=== PATIENT | male | born 1945 | race Caucasian/White ===

== ENCOUNTER 2025-02-17 20:26 | Outpatient (REF) | payer OTHER, SELFPAY ==
[2025-02-17 21:04] LABS: Appearance Urine Cloudy (Clear); Bilirubin Urine Negative (Negative); Blood Urine 3+ (Negative); Color Urine Yellow (Yellow); Glucose Urine 2+ (Negative); Ketones Urine Negative (Negative); Leukocyte Esterase Urine Trace (Negative); Nitrite Urine Negative (Negative); Protein Urine 1+ (Negative); Specific Gravity Urine 1.015 (1.000-1.030); Urobilinogen Urine 0.2 (0.2-1.0); pH Urine 5.5 (5.0-8.5)
[2025-02-17 21:30] LABS: Fine Granular Casts Urine Few
== END 2025-02-17 20:27 | disposition home or self-care (01) ==
LOC: NPINS 20:26
PROVIDERS: PCP Family Medicine; Visit Provider Nurse Practitioner Gerontology
DX: R41.0 Disorientation, unspecified (principal)
CPT/HCPCS: 81001; 87086

== ENCOUNTER 2025-03-04 08:07 | Outpatient (CLI) | payer OTHER, MEDICARE, SELFPAY | END 2025-03-04 08:08 | disposition home or self-care (01) | LOC: AMB 03-05 09:09 | PROVIDERS: PCP Family Medicine; Visit Provider Family Medicine | DX: R47.81 Slurred speech (principal); R29.810 Facial weakness | CPT/HCPCS: A0425; A0427 ==

== ENCOUNTER 2025-03-04 08:33 | Inpatient (IN) | payer OTHER, MEDICARE, SELFPAY ==
[2025-03-04] VITALS (30 sets, daily range): BP systolic 88–143; BP diastolic 59–89; PULSE 65–85; RESP 11–27; TEMP 36.2–36.8; O2SAT 91–100; BMI 25.0; BMI 28.6
--- NOTE | 2025-03-04 08:35 | CRLHL7_ITS ---
For Patients: As a result of the Century Cures Act, medical imaging exams and procedure reports are released immediately into your electronic medical record. You may view this report before your referring provider. If you have questions, please contact your health care provider. COMPARISON: None. IMPRESSION: CTA head: No large vessel occlusion or significant aneurysm. Mild focal stenosis of the left P2 segment. Calcification of the cavernous carotids. CTA neck: No sign of dissection or critical stenosis. Calcification of the carotid bulbs. Other: Paraseptal emphysema. There is a 3 millimeter nodule in the right upper lobe. In a low risk patient, no further follow-up is indicated. In a high-risk patient, nonemergent CT chest can be considered to evaluate for other nodules. Please note that all CT scans at this facility use dose modulation, iterative reconstruction, and/or weight-based dosing when appropriate to reduce radiation dose to as low as reasonably achievable. Dictated by Pratima Vasquez MD @ 03/04/2025 8:57:45 AM (Electronically Signed)
--- NOTE | 2025-03-04 08:35 | CRLHL7_ITS ---
For Patients: As a result of the Cures Act, medical imaging exams and procedure reports are released immediately into your electronic medical record. You may view this report before your referring provider. If you have questions, please contact your health care provider. INDICATION: . TECHNIQUE: CT head without contrast. COMPARISON: None. FINDINGS: MASS EFFECT AND VENTRICLES: No significant midline shift. The lateral ventricles are symmetric. Basal cisterns patent. No sulcal effacement. The ventricles, cisterns, and other CSF containing spaces are symmetrically prominent secondary to diffuse parenchymal volume loss but are otherwise normal as to shape and position. BRAIN: Diffuse cerebral volume loss. Periventricular and subcortical hypodensities likely secondary to age-related microvascular ischemic changes. No acute infarct or hemorrhage. VASCULAR: No acute abnormalities of the cavernous carotids and vertebral vessels on noncontrast exam. Calcification of the cavernous carotids. EXTRA-AXIAL: Extra-axial spaces are normal. EXTRA-CRANIAL: Minimal soft tissue stranding along the left forehead. No acute calvarial or facial fractures. Moderate left maxillary sinus mucosal thickening. Mastoids are clear. Bilateral lens replacements. IMPRESSION: No acute intracranial abnormality. These results were communicated to Adalgisa by Christina on 03/04/2025 at 8:50 a.m.. Please note that all CT scans at this facility use dose modulation, iterative reconstruction, and/or weight-based dosing when appropriate to reduce radiation dose to as low as reasonably achievable. Dictated by Pratima Vasquez MD @ 03/04/2025 8:52:54 AM (Electronically Signed)
--- NOTE | 2025-03-04 08:36 | CRLHL7_ITS ---
For Patients: As a result of the Century Cures Act, medical imaging exams and procedure reports are released immediately into your electronic medical record. You may view this report before your referring provider. If you have questions, please contact your health care provider. DATE: 03/04/2025 CLINICAL HISTORY: Patient with focal neurological deficits. TECHNIQUE: Standard helical CT image acquisition of the neck up to the skull base after bolus intravenous contrast enhancement. 2D and 3D MIP images for post-processing were performed and interpreted on an independent workstation and 3D images were permanently archived. COMPARISON: CT same day. FINDINGS: The origins of the great vessels from the aortic arch are patent. The origin of the right vertebral artery is patent. The origin of the left vertebral artery is patent. The common carotid arteries are patent. There is no stenosis at the origin of the right internal carotid artery. There is no stenosis at the origin of the left internal carotid artery. The rest of the cervical segments of the internal carotid arteries are patent up to the skull base. The left vertebral artery is dominant. The cervical segments of the vertebral arteries are patent up to the skull base. The visualized lung apices are unremarkable. The thyroid gland is unremarkable. The soft tissues of the neck are unremarkable. There are degenerative changes in the cervical spine. IMPRESSION: Patent cervical vasculature. Please note that all CT scans at this facility use dose modulation, iterative reconstruction, and/or weight-based dosing when appropriate to reduce radiation dose to as low as reasonably achievable. Dictated by Mami Resendiz MD @ 03/04/2025 11:34:32 AM (Electronically Signed)
--- NOTE | 2025-03-04 08:37 | ED.GENADULT ---
HPI - General Adult General Time Seen by Provider: 08:37 Date Seen: 03/04/25 Chief complaint: Neuro Symptoms/Altered Deficit Stated complaint: Stroke Source: patient and EMS Mode of arrival: EMS Limitations: language barrier History of Present Illness HPI narrative: Edvin 79-year-old male from [facility] assisted living presents emergency department via EMS with speech difficulty, left-sided weakness. per staff when they woke him up this morning they noted significant change with patient's speech, last known normal was last evening before going to bed. He also noted to have some left upper extremity weakness, left-sided gaze per EMS. Patient denies any headache or dizziness. No visual changes. No trouble swallowing. No history of any CVA. Patient denies any focal weakness, patient does feel that his speech has been more difficult. Patient said he went to bed around 9:00 p.m. last night. Patient states he was relatively feeling well prior to going to bed last night. Related Data Home Medications ?Medication ?Instructions ?Recorded ?Confirmed acetaminophen 500 mg capsule 1,000 mg PO TID PRN 03/04/25 03/04/25 allopurinol 300 mg tablet 300 mg PO DAILY 03/04/25 03/04/25 amlodipine 10 mg tablet 10 mg PO DAILY 03/04/25 03/04/25 aspirin 81 mg capsule 81 mg PO DAILY 03/04/25 03/04/25 atorvastatin 40 mg tablet 40 mg PO QHS 03/04/25 03/04/25 carvedilol 6.25 mg tablet 6.25 mg PO BID 03/04/25 03/04/25 diclofenac sodium 1 % topical gel 2 g topical QID 03/04/25 03/04/25 duloxetine 30 mg capsule,delayed 30 mg PO BID 03/04/25 03/04/25 release (Cymbalta) empagliflozin 25 mg tablet 25 mg PO DAILY 03/04/25 03/04/25 gabapentin 100 mg capsule 200 mg PO Q8H PRN 03/04/25 03/04/25 gabapentin 100 mg capsule 200 mg PO TID 03/04/25 03/04/25 (Neurontin) insulin aspart U-100 100 unit/mL 15 unit subcut TID 03/04/25 03/04/25 (3 mL) subcutaneous pen insulin glargine 100 unit/mL (3 40 unit subcut DAILY 03/04/25 03/04/25 mL) subcutaneous pen lisinopril 40 mg tablet 40 mg PO DAILY 03/04/25 03/04/25 nitroglycerin 0.4 mg sublingual 0.4 mg sublingual Q5M 03/04/25 03/04/25 tablet omeprazole 20 mg capsule,delayed 20 mg PO DAILY 03/04/25 03/04/25 release pioglitazone 15 mg tablet (Actos) 15 mg PO DAILY 03/04/25 03/04/25 Allergies Allergy/AdvReac Type Severity Reaction Status Date / Time colchicine Allergy Unknown Verified 03/04/25 08:51 metformin Allergy Unknown Verified 03/04/25 08:51 PFSH PFS Social History Smoking Status: Former smoker How often do you have a drink containing alcohol: never AUDIT-C Alcohol total score: 0 Non-prescribed substance use: denies use Exam Narrative: Exam Narrative: general: no obvious distress, laying comfortably HEENT: Pupils equal round reactive to light extraocular movements intact, visual acuity normal Lungs: Clear to auscultation Heart: Normal sinus rhythm S1-S2 Abdomen: Soft nontender Muscle skeletal: +5 strength left lower extremity, [id number] right amputation Neuro: NIH stroke scale: Level of consciousness: 0 Ask month and age: 0 Blink eyes and squeeze hands: 0 Visual richardson: 0 facial palsy: +2 left arm motor drift: 0 right arm motor drift: +1 left leg motor drift: 0 right leg motor drift: 0 Limb ataxia: 0 sensation: 0 Aphasia: 0 Dysarthria: +1 Extinction/inattention: 0 Score: 4 Const: Vital Signs, click to edit/add: Vital Signs - 24 hr 03/04/25 08:40 03/04/25 08:44 03/04/25 08:45 Temperature 97.9 F Pulse Rate 73 Pulse Rate [Pulse Oximeter] 75 Respiratory Rate 16 16 Blood Pressure 143/81 H Blood Pressure [Ri ght Upper Arm] 136/72 Pulse Oximetry 96 96 95 Oxygen Delivery Me thod Room Air 03/04/25 08:47 03/04/25 09:01 03/04/25 09:17 Temperature Pulse Rate 74 72 74 Pulse Rate [Pulse Oximeter] Respiratory Rate 19 14 13 Blood Pressure 136/72 126/69 119/85 Blood Pressure [Ri ght Upper Arm] Pulse Oximetry 98 96 99 Oxygen Delivery Me thod 03/04/25 09:32 03/04/25 09:47 03/04/25 10:02 Temperature Pulse Rate 71 70 69 Pulse Rate [Pulse Oximeter] Respiratory Rate 16 14 11 L Blood Pressure 110/71 111/70 103/60 Blood Pressure [Ri ght Upper Arm] Pulse Oximetry 100 98 96 Oxygen Delivery Me thod 03/04/25 10:31 03/04/25 10:46 03/04/25 12:02 Temperature Pulse Rate 68 70 66 Pulse Rate [Pulse Oximeter] Respiratory Rate 13 15 13 Blood Pressure 103/59 L 104/62 120/65 Blood Pressure [Ri ght Upper Arm] Pulse Oximetry 98 96 96 Oxygen Delivery Me thod 03/04/25 12:31 03/04/25 13:00 03/04/25 13:01 Temperature Pulse Rate 65 67 71 Pulse Rate [Pulse Oximeter] Respiratory Rate 12 16 15 Blood Pressure 126/74 118/74 132/70 Blood Pressure [Ri ght Upper Arm] Pulse Oximetry 91 95 95 Oxygen Delivery Me thod 03/04/25 13:31 03/04/25 14:02 03/04/25 14:17 Temperature Pulse Rate 67 67 Pulse Rate [Pulse Oximeter] Respiratory Rate 12 19 21 Blood Pressure 130/71 133/71 Blood Pressure [Ri ght Upper Arm] Pulse Oximetry 94 92 Oxygen Delivery Me thod Room Air 03/04/25 14:30 03/04/25 14:31 03/04/25 14:32 Temperature Pulse Rate 75 74 74 Pulse Rate [Pulse Oximeter] Respiratory Rate 14 18 13 Blood Pressure 88/61 L Blood Pressure [Ri ght Upper Arm] Pulse Oximetry 97 97 97 Oxygen Delivery Mo thod 03/04/25 14:45 03/04/25 14:48 03/04/25 15:00 Temperature Pulse Rate 77 78 Pulse Rate [Pulse Oximeter] Respiratory Rate 21 25 H 17 Blood Pressure 135/89 Blood Pressure [Ri ght Upper Arm] Pulse Oximetry 97 98 Oxygen Delivery Me thod 03/04/25 15:01 03/04/25 15:15 Temperature Pulse Rate 69 Pulse Rate [Pulse Oximeter] Respiratory Rate 27 H Blood Pressure 130/68 Blood Pressure [Ri ght Upper Arm] Pulse Oximetry 98 Oxygen Delivery Me thod Course Course ED Course: 8:25 am: stroke team activation, patient to go for CT head without contrast and CTA head and neck angiogram, will obtain EKG, INR, CBC, CMP, to reach out to tele stroke [facility]. Vitals are stable at this time, differential includes ischemic versus hemorrhagic stroke, TIA, sepsis, AR, Maldonado's palsy, metabolic abnormalities. Patient not a tPA candidate at this time. LKN 9 pm last night. 8:40 AM: spoke with Neuro stroke [facility], Dr. Diana, he will evaluate patient. Reevaluation(s) Time of Reevaluation #1: 09:32 Reevaluation #1: spoke with tele stroke [facility], reviewed imaging, recommended 300 mg aspirin suppository, to obtain MR brain without IV contrast. EKG showed nothing acute, normal sinus rhythm of 74, anterior septal infarct age undetermined but seen on previous, CBC showed no leukocytosis, anemia and thrombocytopenia, no comparisons, comprehensive metabolic panel showed mild LYDIA, potassium of 5.7, normal sodium. CT head without IV contrast showed no acute intracranial abnormality, CTA head neck angiogram showed no alveolar or significant stenosis. Recommendations by Dr. Diana, MR brain without contrast, 300 mg rectal aspirin. Time of Reevaluation #2: 11:36 Reevaluation #2: Impression: 1. Motion artifact significantly degrades multiple sequences. 2. Small acute infarction within the left internal capsule posterior limb. 3. Moderate chronic microvascular ischemic changes and [id number] diffuse cerebral volume loss. Reevaluation #3: Spoke with Dr. Diana Neurology, recommendations were to Plavix load 300 mg, and then 75 mg daily for 21 days in addition to 325 mg aspirin, patient would need to be admitted, management of risk factors and stroke workup, family was thinking the [place] [facility] since he is being transition to a alf with the [facility], however [facility] is full capacity, will check with [facility], no local beds. 12:30 PM: Spoke with hospitalist, he accepted care of the patient to [facility] Neurology floor for an acute ischemic stroke. Bed hold at this time is 6-8 hours, patient and family updated. 2:30 PM: Patient is able to stay locally, spoke with hospitalist Dr. Haddad and he accepts care of the patient to a Med surgery tele bed for observation. Vital Signs Vital signs: Initial Vital Signs Pulse Oximetry 96 03/04/25 08:40 Vital Signs Pulse Oximetry 96 03/04/25 08:40 Temperature 97.9 F 03/04/25 08:45 Pulse Rate 69 03/04/25 15:15 Respiratory Rate 27 H 03/04/25 15:01 Blood Pressure 130/68 03/04/25 15:01 Pulse Oximetry 98 03/04/25 15:15 Oxygen Delivery Method Room Air 03/04/25 14:02 Medications Administered Medications: Discontinued Medications Generic Name Dose Route Start Last Admin Trade Name Freq PRN Reason Stop Dose Admin Aspirin 300 mg 03/04/25 09:31 03/04/25 10:06 Aspirin 300 Mg Supp KS 03/04/25 09:32 300 mg ONCE ONE Administration Clopidogrel Bisulfate 300 mg 03/04/25 12:07 03/04/25 12:48 Clopidogrel 300 Mg Tablet PO 03/04/25 12:08 300 mg ONCE ONE Administration Sodium Chloride 500 mls @ 500 mls/hr 03/04/25 11:33 03/04/25 12:59 0.9 % Sodium Chloride 500 Ml IV 03/04/25 12:32 Infused .Q1H ONE Infusion Medical Decision Making Lab Data Labs: Lab Results 03/04/25 Range/Units 08:40 WBC 7.45 (4.50-11.00) K/uL RBC 3.96 L (4.30-5.90) m/uL Hgb 11.4 L (13.5-17.5) gm/dL Hct 35.6 L (37.0-53.0) % MCV 90 (80-100) fL MCH 29 (26-34) pg MCHC 32 (32-36) gm/dL RDW Coeff of Kiana 15.8 H (11.5-15.5) % Plt Count 128 L (140-440) K/uL Neut % (Auto) 73.1 H (42.0-72.0) % Lymph % (Auto) 12.1 L (20-44) % Howell % (Auto) 11.7 H (0.0-11.0) % Eos % (Auto) 2.1 (0.0-7.0) % Baso % (Auto) 0.7 (0.0-3.0) % Neut # (Auto) 5.40 (1.7-7.0) K/uL Lymph # (Auto) 0.90 (0.90-2.90) K/uL Howell # (Auto) 0.90 (0.00-0.90) K/UL Eos # (Auto) 0.16 (0.00-0.50) K/uL Baso # (Auto) 0.05 (0.00-0.30) K/uL Abs Immat Gran (auto) 0.02 (0.00-0.30) K/uL Imm/Tot Granulo (auto) 0.3 % INR 1.04 (0.91-1.10) Sodium 135 (135-149) mmol/L Potassium 5.7 H (3.6-5.1) mmol/L Chloride 106 (96-114) mmol/L Carbon Dioxide 20 (20-32) mmol/L Anion Gap 9 (7-15) mEq/L BUN 51 H (7-30) mg/dL Creatinine 1.8 H (0.5-1.5) mg/dL Estimated Creat Clear 28.95 Estimated GFR 38 ml/min Glucose 119 H (60-115) mg/dL Calcium 8.6 (8.4-10.6) mg/dL Total Bilirubin 1.0 (0.1-1.5) mg/dL AST 23 (12-35) U/L ALT 18 (4-50) U/L Alkaline Phosphatase 65 (40-150) U/L Total Protein 6.0 (6.0-8.3) g/dL Albumin 3.6 (3.3-5.0) g/dL Discharge Plan Discharge Clinical Impression: Cerebrovascular accident Patient Disposition: Admitted As Observation
[2025-03-04 08:52] LABS: Basophils Absolute Auto 0.05 K/uL (0.00-0.30); Basophils Percent Auto 0.7 % (0.0-3.0); Eosinophils Absolute Auto 0.16 K/uL (0.00-0.50); Eosinophils Percent Auto 2.1 % (0.0-7.0); Hematocrit 35.6 % (37.0-53.0); Hemoglobin* 11.4 gm/dL (13.5-17.5); Immature Granulocytes Abs Auto 0.02 K/uL (0.00-0.30); Immature Granulocytes Pct Auto 0.3 %; Lymphocytes Percent Auto 12.1 % (20-44); Mean Corpuscular HGB Conc 32 gm/dL (32-36); Mean Corpuscular Hemoglobin 29 pg (26-34); Mean Corpuscular Volume 90 fL (80-100); Monocytes Percent Auto 11.7 % (0.0-11.0); Neutrophils Percent Auto 73.1 % (42.0-72.0); Platelet Count* 128 K/uL (140-440); RDW Coefficient of Variation % 15.8 % (11.5-15.5); Red Blood Count 3.96 m/uL (4.30-5.90); White Blood Count* 7.45 K/uL (4.50-11.00)
[2025-03-04 08:53] LABS: Slide Review Reflex No
[2025-03-04 09:02] LABS: Albumin* 3.6 g/dL (3.3-5.0); Chloride* 106 mmol/L (96-114); Potassium* 5.7 mmol/L (3.6-5.1); Sodium* 135 mmol/L (135-149)
[2025-03-04 09:04] LABS: Blood Urea Nitrogen* 51 mg/dL (7-30); Creatinine* 1.8 mg/dL (0.5-1.5); Est. Creatinine Clearance* 28.95; Estimated Glomerular Filt Rate 38 ml/min
[2025-03-04 09:05] LABS: Alanine Aminotransferase* 18 U/L (4-50); Alkaline Phosphatase* 65 U/L (40-150); Anion Gap 9 mEq/L (7-15); Aspartate Amino Transferase* 23 U/L (12-35); Calcium* 8.6 mg/dL (8.4-10.6); Carbon Dioxide* 20 mmol/L (20-32); Glucose* 119 mg/dL (60-115)
[2025-03-04 09:08] LABS: INR 1.04 (0.91-1.10); Prothrombin Time 14.5 Seconds
--- NOTE | 2025-03-04 09:31 | CRLHL7_ITS ---
For Patients: As a result of the Century Cures Act, medical imaging exams and procedure reports are released immediately into your electronic medical record. You may view this report before your referring provider. If you have questions, please contact your health care provider. Indication: Gait disorder. Technique: Multiplanar multisequence noncontrast MR images of the brain. Comparison: CT brain 03/04/2025. Findings: Motion artifact significantly degrades multiple sequences. Small focus of diffusion restriction and faint FLAIR hyperintensity within the left internal capsule posterior limb, compatible with acute infarction. [id number] diffuse cerebral volume loss. No mass effect or midline shift. Patchy FLAIR hyperintensities in the supratentorial white matter, typical for moderate chronic microvascular ischemic changes. No recent intracranial hemorrhage or pathologic extra-axial fluid collection. The major arterial flow voids of the skull base are preserved. Thinning of the ocular lenses. Mild left maxillary sinus mucosal thickening. Trace right mastoid fluid Impression: 1. Motion artifact significantly degrades multiple sequences. 2. Small acute infarction within the left internal capsule posterior limb. 3. Moderate chronic microvascular ischemic changes and [id number] diffuse cerebral volume loss. Dictated by Dougie Devries MD @ 03/04/2025 11:31:34 AM (Electronically Signed)
[2025-03-04] MEDS: ASPIRIN 300 MG SUPP PR (10:06)
[2025-03-04] MEDS: 0.9 % SODIUM CHLORIDE 500 ML 500 ML IV (11:58)
[2025-03-04] MEDS: CLOPIDOGREL 300 MG TABLET PO (12:48)
[2025-03-04] MEDS: carvediloL 6.25 MG TABLET PO (20:30)
[2025-03-04] MEDS: GABAPENTIN 100 MG CAPSULE 200 MG PO (20:30)
[2025-03-04] MEDS: ATORVASTATIN CALCIUM 40 MG TABLET PO (20:30)
[2025-03-04] MEDS: ENOXAPARIN 30 MG/0.3ML INJ SUBCUT (20:31)
[2025-03-04] MEDS: DULOXETINE 30 MG CAPSULE DR PO (20:31)
[2025-03-04] MEDS: SODIUM CHLORIDE 0.9 % (FLUSH) 10 ML SYRINGE 5 ML IVF (20:31)
[2025-03-04] MEDS: NYSTATIN POWDER 1 APPLIC TOPICAL (20:32)
--- NOTE | 2025-03-04 21:50 | PM.IMHP1 ---
Assessment and Plan Assessment and plan (1) Cerebrovascular accident: Problem comment: Acute stroke involving ischemia in the internal capsule. Clinical syndrome of expressive dysphagia, articulation and word-finding. PT OT speech therapy to evaluate and treat. Aspirin and Plavix, permission of hypertension, echocardiogram, cardiac monitoring. Status: Acute (2) Hypertension: Problem comment: Allow for permissive hypertension initially after stroke Status: Acute (3) Diabetes mellitus type 2 with atherosclerosis of arteries of extremities: Problem comment: Monitor and manage blood sugars. Optimize diabetes care. Status: Acute (4) Peripheral sensory neuropathy due to type 2 diabetes mellitus: Status: Acute (5) Discharge planning issues: Problem comment: Patient is resident of [facility]. I think he can return there when inpatient stroke evaluation treatment are complete. He is scheduled to moved to the [place] home next Saturday Status: Acute Plan Patient is admitted for evaluation and treatment of stroke as outlined above. Monitor neurologic status, therapy and other routine management of stroke risk factors. Total Time Spent Total Time Spent: Total time spent today is 90 minutes in coordination of care, reviewing outside records, discussing with patient and daughters and other providers ongoing evaluation and management of stroke and stroke risk factors Hospitalist- H&P: NAN History of Present Illness Date Seen: 03/04/25 Chief complaint: Stroke Narrative: Ellis Amaya is a 79 year old male resident of [facility] with generalized vascular disease, diabetes mellitus, previous right BKA, coronary artery disease with stents, admitted with new onset of difficulty with speaking. The day prior to admission he was described as not quite his normal self but was able to speak relatively clearly. The morning of admission staff noted that he was very difficult to understand. He was mumbling and very difficult to understand except for occasional simple words and phrases. He did not have slurring of his speech as much as apparent difficulty finding and forming words. He seemed to have good comprehension and followed instructions and commands and responded appropriately to verbal instructions. He did not have any obvious weakness. The neurologist was consulted noted some right-sided facial weakness. In the emergency department he had imaging which showed a small infarction in the left internal capsule posterior limb as well as moderate chronic microvascular ischemic changes and mild to moderate cerebral volume loss. CTA of the head and neck showed no large vessel occlusion. Due to the time of last seeming well he was not a candidate for any intravascular intervention. He was recommended to have routine stroke evaluation and treatment including cardiac monitoring, echo, therapy evaluation, optimizing stroke risk factors and initiating aspirin and Plavix for 21 days followed by Plavix indefinitely. Patient is known to have multiple cardiovascular risk factors which are already being aggressively treated. Review of Systems Narrative: Patient reports no symptoms of illness or recent injury or other neurologic or other illness symptoms. [facility] Medical History (Updated 03/04/25 @ 22:13 by Jaxson Haddad MD) Amputated toe of left foot ?S98.132A - Complete traumatic amputation of one left lesser toe, initial encounter (ICD-10) Incontinence of bowel ?R15.9 - Full incontinence of feces (ICD-10) Bladder incontinence ?R32 - Unspecified urinary incontinence (ICD-10) Non-STEMI (non-ST elevated myocardial infarction) ?I21.4 - Non-ST elevation (NSTEMI) myocardial infarction (ICD-10) Gastroesophageal reflux disease ?K21.9 - Gastro-esophageal reflux disease without esophagitis (ICD-10) Dyslipidemia ?E78.5 - Hyperlipidemia, unspecified (ICD-10) Peripheral sensory neuropathy due to type 2 diabetes mellitus ?E11.42 - Type 2 diabetes mellitus with diabetic polyneuropathy (ICD-10) CKD stage 3 due to type 2 diabetes mellitus ?E11.22 - Type 2 diabetes mellitus with diabetic chronic kidney disease (ICD-10) ?N18.30 - Chronic kidney disease, stage 3 unspecified (ICD-10) Hypertension ?I10 - Essential (primary) hypertension (ICD-10) Diabetic retinopathy ?E11.319 - Type 2 diabetes mellitus with unspecified diabetic retinopathy without macular edema (ICD-10) Diabetes mellitus type 2 with atherosclerosis of arteries of extremities ?E11.51 - Type 2 diabetes mellitus with diabetic peripheral angiopathy without gangrene (ICD-10) ?I70.209 - Unspecified atherosclerosis of [place] arteries of extremities, unspecified extremity (ICD-10) Surgical History (Updated 03/04/25 @ 22:03 by Jaxson Haddad MD) S/P coronary artery stent placement ?Z95.5 - Presence of coronary angioplasty implant and graft (ICD-10) Status post below knee amputation of right lower extremity ?Z89.511 - Acquired absence of right leg below knee (ICD-10) Family History (Updated 03/04/25 @ 22:03 by Jaxson Haddad MD) Father Heart disease Social History (Updated 03/04/25 @ 22:05 by Jaxson Haddad MD) Narrative: He lives at [address] [place] [address] for about the last 3 years. He is nonambulatory for the last month due to slowly healing ulcer on his right BKA stump. His daughters are healthcare power of employee benefits attorney. Code status is DNR. Remote history of smoking. History of occasional alcohol use. What is your current living situation?: I presently have a place to live Problems where you live: no known problems Problems where you live details: N/A In the past 12 months, utilities in danger of being shut off: no In past 12 months, lack of transportation kept you from medical appts, meetings, work, or getting things needed for daily living: no In the past 12 mos, have been you worried that your food would run out before you had money to buy more?: never true In the past 12 mos, the food you bought just didn't last and you didn't have money to buy more?: never true Highest level of school completed/degree received: high school graduate Smoking Status: Former smoker How often do you have a drink containing alcohol: never AUDIT-C Alcohol total score: 0 Non-prescribed substance use: denies use Caffeine: Yes How often does anyone, including family, friends and others, physically hurt you: never How often does anyone, including family, friends and others, insult or talk down to you: never How often does anyone, including family, friends and others, threaten you with harm: never How often does anyone, including family, friends and others, scream or curse at you: never service: Yes Meds Home Medications and Allergies Home Medications ?Medication ?Instructions ?Recorded ?Confirmed ?Type acetaminophen 500 mg capsule 1,000 mg PO TID PRN 03/04/25 03/04/25 History allopurinol 300 mg tablet 300 mg PO DAILY 03/04/25 03/04/25 History amlodipine 10 mg tablet 10 mg PO DAILY 03/04/25 03/04/25 History aspirin 81 mg capsule 81 mg PO DAILY 03/04/25 03/04/25 History atorvastatin 40 mg tablet 40 mg PO QHS 03/04/25 03/04/25 History carvedilol 6.25 mg tablet 6.25 mg PO BID 03/04/25 03/04/25 History diclofenac sodium 1 % topical gel 2 g topical QID 03/04/25 03/04/25 History duloxetine 30 mg capsule,delayed 30 mg PO BID 03/04/25 03/04/25 History release (Cymbalta) empagliflozin 25 mg tablet 25 mg PO DAILY 03/04/25 03/04/25 History gabapentin 100 mg capsule 200 mg PO Q8H PRN 03/04/25 03/04/25 History gabapentin 100 mg capsule 200 mg PO TID 03/04/25 03/04/25 History (Neurontin) insulin aspart U-100 100 unit/mL 15 unit subcut TID 03/04/25 03/04/25 History (3 mL) subcutaneous pen insulin glargine 100 unit/mL (3 40 unit subcut DAILY 03/04/25 03/04/25 History mL) subcutaneous pen lidocaine 4 % topical patch 1 patch topical DAILY PRN 03/04/25 03/04/25 History (Aspercreme (lidocaine)) lisinopril 40 mg tablet 40 mg PO DAILY 03/04/25 03/04/25 History melatonin 3 mg capsule 3 mg PO HS PRN 03/04/25 03/04/25 History nitroglycerin 0.4 mg sublingual 0.4 mg sublingual Q5M 03/04/25 03/04/25 History tablet omeprazole 20 mg capsule,delayed 20 mg PO DAILY 03/04/25 03/04/25 History release pioglitazone 15 mg tablet (Actos) 15 mg PO DAILY 03/04/25 03/04/25 History Allergies Allergy/AdvReac Type Severity Reaction Status Date / Time colchicine Allergy Unknown Verified 03/04/25 08:51 metformin Allergy Unknown Verified 03/04/25 08:51 Exam Narrative: Exam Narrative: He is alert and appears in no distress. He is having moderate difficulty speaking. He does answer appropriately yes and no and other simple one-word answers but is unable to make phrases or sentences that are understandable. Speech is seen to be mumbling and repetitive with difficulty and word-finding. No obvious facial asymmetry. Eyes are normal. His trouble following instructions for testing extraocular movements but appears to have no restriction or dysconjugate gaze. No nystagmus. Intact visual richardson. Oropharynx with very small airway. Neck is supple without mass or adenopathy. No jugular venous distension. Respirations are clear to auscultation. Good air exchange all lung richardson. Cardiovascular: S1, S2, regular rate and rhythm. No murmur gallop or rub. Abdomen: Bowel sounds active. Abdomen is soft without tenderness or mass. Extremities with right BKA stump with a 2 or 3 mm healing ulcer with eschar no erythema warm to touch. Left lower extremity with amputation of all toes but otherwise without open lesions or ulcers. Diminished pedal pulses. He moves his lower extremities relatively symmetrically. Upper extremities have equal strength in all muscle groups bilaterally. Const: Vital Signs, click to edit/add: Vital Signs - 24 hr 03/04/25 08:40 03/04/25 08:44 03/04/25 08:45 Temperature 97.9 F Pulse Rate 73 Pulse Rate [Left P ulse Oximeter] Pulse Rate [Pulse Oximeter] 75 Respiratory Rate 16 16 Blood Pressure 143/81 H Blood Pressure [Ri ght Arm] Blood Pressure [Ri ght Upper Arm] 136/72 Pulse Oximetry 96 96 [facility] 03/04/25 08:47 03/04/25 09:01 03/04/25 09:17 Temperature Pulse Rate 74 72 74 Pulse Rate [Left P ulse Oximeter] Pulse Rate [Pulse Oximeter] Respiratory Rate 19 14 13 Blood Pressure 136/72 126/69 119/85 Blood Pressure [Ri ght Arm] Blood Pressure [Ri ght Upper Arm] Pulse Oximetry 98 96 99 [facility] 03/04/25 09:32 03/04/25 09:47 03/04/25 10:02 Temperature Pulse Rate 71 70 69 Pulse Rate [Left P ulse Oximeter] Pulse Rate [Pulse Oximeter] Respiratory Rate 16 14 11 L Blood Pressure 110/71 111/70 103/60 Blood Pressure [Ri ght Arm] Blood Pressure [Ri ght Upper Arm] Pulse Oximetry 100 98 96 [facility] 03/04/25 10:31 03/04/25 10:46 03/04/25 12:02 Temperature Pulse Rate 68 70 66 Pulse Rate [Left P ulse Oximeter] Pulse Rate [Pulse Oximeter] Respiratory Rate 13 15 13 Blood Pressure 103/59 L 104/62 120/65 Blood Pressure [Ri ght Arm] Blood Pressure [Ri ght Upper Arm] Pulse Oximetry 98 96 96 [facility] 03/04/25 12:31 03/04/25 13:00 03/04/25 13:01 Temperature Pulse Rate 65 67 71 Pulse Rate [Left P ulse Oximeter] Pulse Rate [Pulse Oximeter] Respiratory Rate 12 16 15 Blood Pressure 126/74 118/74 132/70 Blood Pressure [Ri ght Arm] Blood Pressure [Ri ght Upper Arm] Pulse Oximetry 91 95 95 Oxygen Delivery [facility] 03/04/25 13:31 03/04/25 14:02 03/04/25 14:17 Temperature Pulse Rate 67 67 Pulse Rate [Left P ulse Oximeter] Pulse Rate [Pulse Oximeter] Respiratory Rate 12 19 21 Blood Pressure 130/71 133/71 Blood Pressure [Ri ght Arm] Blood Pressure [Ri ght Upper Arm] Pulse Oximetry 94 92 [facility] 03/04/25 14:30 03/04/25 14:31 03/04/25 14:32 Temperature Pulse Rate 75 74 74 Pulse Rate [Left P ulse Oximeter] Pulse Rate [Pulse Oximeter] Respiratory Rate 14 18 13 Blood Pressure 88/61 L Blood Pressure [Ri ght Arm] Blood Pressure [Ri ght Upper Arm] Pulse Oximetry 97 97 97 Oxygen Delivery [facility] 03/04/25 14:45 03/04/25 14:48 03/04/25 15:00 Temperature Pulse Rate 77 78 Pulse Rate [Left P ulse Oximeter] Pulse Rate [Pulse Oximeter] Respiratory Rate 21 25 H 17 Blood Pressure 135/89 Blood Pressure [Ri ght Arm] Blood Pressure [Ri ght Upper Arm] Pulse Oximetry 97 98 Oxygen Delivery [facility] 03/04/25 15:01 03/04/25 15:15 03/04/25 16:14 Temperature 97.1 F L Pulse Rate 69 Pulse Rate [Left P ulse Oximeter] 77 Pulse Rate [Pulse Oximeter] Respiratory Rate 27 H 14 Blood Pressure 130/68 Blood Pressure [Ri ght Arm] 139/80 Blood Pressure [Ri ght Upper Arm] Pulse Oximetry 98 94 [facility] 03/04/25 16:14 03/04/25 18:00 03/04/25 19:00 Temperature 97.5 F L Pulse Rate 72 Pulse Rate [Left P ulse Oximeter] 73 Pulse Rate [Pulse Oximeter] Respiratory Rate 14 16 Blood Pressure Blood Pressure [Ri ght Arm] 130/74 Blood Pressure [Ri ght Upper Arm] Pulse Oximetry 94 94 Oxygen Delivery [facility] Room Air Room Air Documenting provider has reviewed patient's vital signs: yes Hospitalist - H&P: Result Labs Labs: Short CBC 03/04/25 Range/Units 08:40 WBC 7.45 (4.50-11.00) K/uL Hgb 11.4 L (13.5-17.5) gm/dL Hct 35.6 L (37.0-53.0) % Plt Count 128 L (140-440) K/uL BMP 03/04/25 08:40 Sodium 135 Potassium 5.7 H Chloride 106 Carbon Dioxide 20 BUN 51 H Creatinine 1.8 H Glucose 119 H Calcium 8.6 Liver Function 03/04/25 Range/Units 08:40 Total Bilirubin 1.0 (0.1-1.5) mg/dL AST 23 (12-35) U/L ALT 18 (4-50) U/L Alkaline Phosphatase 65 (40-150) U/L Albumin 3.6 (3.3-5.0) g/dL Imaging CTA head: Radiologist's impression: IMPRESSION: CTA head: No large vessel occlusion or significant aneurysm. Mild focal stenosis of the left P2 segment. Calcification of the cavernous carotids. CTA neck: No sign of dissection or critical stenosis. Calcification of the carotid bulbs. Other: Paraseptal emphysema. There is a 3 millimeter nodule in the right upper lobe. In a low risk patient, no further follow-up is indicated. In a high-risk patient, nonemergent CT chest can be considered to evaluate for other nodules. Please note that all CT scans at this facility use dose modulation, iterative reconstruction, and/or weight-based dosing when appropriate to reduce radiation dose to as low as reasonably achievable. CTA neck: Radiologist's impression: DATE: 03/04/2025 CLINICAL HISTORY: Patient with focal neurological deficits. TECHNIQUE: Standard helical CT image acquisition of the neck up to the skull base after bolus intravenous contrast enhancement. 2D and 3D MIP images for post-processing were performed and interpreted on an independent workstation and 3D images were permanently archived. COMPARISON: CT same day. FINDINGS: The origins of the great vessels from the aortic arch are patent. The origin of the right vertebral artery is patent. The origin of the left vertebral artery is patent. The common carotid arteries are patent. There is no stenosis at the origin of the right internal carotid artery. There is no stenosis at the origin of the left internal carotid artery. The rest of the cervical segments of the internal carotid arteries are patent up to the skull base. The left vertebral artery is dominant. The cervical segments of the vertebral arteries are patent up to the skull base. The visualized lung apices are unremarkable. The thyroid gland is unremarkable. The soft tissues of the neck are unremarkable. There are degenerative changes in the cervical spine. IMPRESSION: Patent cervical vasculature. Please note that all CT scans at this facility use dose modulation, iterative reconstruction, and/or weight-based dosing when appropriate to reduce radiation dose to as low as reasonably achievable. Dictated by Mami Resendiz MD @ 03/04/2025 11:34:32 AM ----- ADDENDUM ----- Please note that there is a 3mm right upper lobe lung nodule. This could be better assessed with a dedicated chest CT, is clinically warranted. Dictated by Mami Resendiz MD @ Mar 04 2025 11:38AM (Electronically Signed) For Patients: As a result of the Cures Act, medical imaging exams and procedure reports are released immediately into your electronic medical record. You may view this report before your referring provider. If you have questions, please contact your health care provider. DATE: 03/04/2025 CLINICAL HISTORY: Patient with focal neurological deficits. TECHNIQUE: Standard helical CT image acquisition of the neck up to the skull base after bolus intravenous contrast enhancement. 2D and 3D MIP images for post-processing were performed and interpreted on an independent workstation and 3D images were permanently archived. COMPARISON: CT same day. FINDINGS: The origins of the great vessels from the aortic arch are patent. The origin of the right vertebral artery is patent. The origin of the left vertebral artery is patent. The common carotid arteries are patent. There is no stenosis at the origin of the right internal carotid artery. There is no stenosis at the origin of the left internal carotid artery. The rest of the cervical segments of the internal carotid arteries are patent up to the skull base. The left vertebral artery is dominant. The cervical segments of the vertebral arteries are patent up to the skull base. The visualized lung apices are unremarkable. The thyroid gland is unremarkable. The soft tissues of the neck are unremarkable. There are degenerative changes in the cervical spine. IMPRESSION: Patent cervical vasculature. MR Brain: Radiologist's impression: Indication: Gait disorder. Technique: Multiplanar multisequence noncontrast MR images of the brain. Comparison: CT brain 03/04/2025. Findings: Motion artifact significantly degrades multiple sequences. Small focus of diffusion restriction and faint FLAIR hyperintensity within the left internal capsule posterior limb, compatible with acute infarction. [id number] diffuse cerebral volume loss. No mass effect or midline shift. Patchy FLAIR hyperintensities in the supratentorial white matter, typical for moderate chronic microvascular ischemic changes. No recent intracranial hemorrhage or pathologic extra-axial fluid collection. The major arterial flow voids of the skull base are preserved. Thinning of the ocular lenses. Mild left maxillary sinus mucosal thickening. Trace right mastoid fluid Impression: 1. Motion artifact significantly degrades multiple sequences. 2. Small acute infarction within the left internal capsule posterior limb. 3. Moderate chronic microvascular ischemic changes and [id number] diffuse cerebral volume loss.
--- NOTE | 2025-03-04 22:11 | PC.NURSE ---
Patient transfers with ceiling lift. Patient has Left below the knee amputation and does not have prosthesis here. Patient gets blood sugar checks and needs assistance with feeding.Patient has garbled speech with aphasia and is incontinent of bowel and bladder. Patient lacks safety awareness and utilizes bed and chair alarms.
[2025-03-05 00:39] VITALS: PULSE 84
[2025-03-05 03:00] VITALS: BP 126/97; PULSE 81; RESP 16; TEMP 36.9; O2SAT 94
--- NOTE | 2025-03-05 06:31 | PC.NURSE ---
The pt has been pleasant and cooperative; denied chest pain and short of breath; the has difficulties of speaking; very difficult to understand the patient due to expressive aphasia . Answer yes and no questions. No mild weakness noted on both upper and lower extremities. Redness noted to groin area- barrier cream applied to the site.? Incontinent of urine noted.?The pt was attempted to get out of bed several times. pulled the IV out. The IV was re-inserted to right wrist
[2025-03-05 06:59] LABS: Basophils Absolute Auto 0.03 K/uL (0.00-0.30); Basophils Percent Auto 0.5 % (0.0-3.0); Eosinophils Absolute Auto 0.14 K/uL (0.00-0.50); Eosinophils Percent Auto 2.3 % (0.0-7.0); Hematocrit 41.3 % (37.0-53.0); Hemoglobin* 13.4 gm/dL (13.5-17.5); Immature Granulocytes Abs Auto 0.02 K/uL (0.00-0.30); Immature Granulocytes Pct Auto 0.3 %; Lymphocytes Percent Auto 14.7 % (20-44); Mean Corpuscular HGB Conc 32 gm/dL (32-36); Mean Corpuscular Hemoglobin 29 pg (26-34); Mean Corpuscular Volume 89 fL (80-100); Monocytes Percent Auto 13.1 % (0.0-11.0); Neutrophils Absolute Auto 4.26 K/uL (1.7-7.0); Neutrophils Percent Auto 69.1 % (42.0-72.0); Platelet Count* 144 K/uL (140-440); RDW Coefficient of Variation % 15.8 % (11.5-15.5); Red Blood Count 4.66 m/uL (4.30-5.90); White Blood Count* 6.17 K/uL (4.50-11.00)
[2025-03-05 07:00] VITALS: BP 140/83; PULSE 80; RESP 16; TEMP 36.8; O2SAT 98
[2025-03-05 07:03] LABS: Slide Review Reflex No
[2025-03-05 07:05] LABS: Chloride* 107 mmol/L (96-114); Potassium* 5.3 mmol/L (3.6-5.1); Sodium* 137 mmol/L (135-149)
[2025-03-05 07:08] LABS: Anion Gap 11 mEq/L (7-15); Blood Urea Nitrogen* 48 mg/dL (7-30); Carbon Dioxide* 19 mmol/L (20-32); Creatinine* 1.7 mg/dL (0.5-1.5); Est. Creatinine Clearance* 30.65; Estimated Glomerular Filt Rate 41 ml/min
[2025-03-05 07:09] LABS: Calcium* 9.3 mg/dL (8.4-10.6); Cholesterol* 160 mg/dL (90-199); Glucose* 91 mg/dL (60-115); HDL Cholesterol* 38 mg/dL (>=40); LDL Cholesterol Calculated 78 mg/dL (<100); Triglycerides* 218 mg/dL (40-149)
[2025-03-05 07:28] LABS: Hemoglobin A1C* 8.2 % (0-5.6)
[2025-03-05] MEDS: OMEPRAZOLE 20 MG CAPSULE DR PO (09:29)
[2025-03-05] MEDS: CLOPIDOGREL 75 MG TABLET PO (09:30)
[2025-03-05] MEDS: DULOXETINE 30 MG CAPSULE DR PO (09:31)
[2025-03-05] MEDS: ASPIRIN EC 325 MG TABLET PO (09:32)
[2025-03-05] MEDS: carvediloL 6.25 MG TABLET PO (09:32)
[2025-03-05] MEDS: GABAPENTIN 100 MG CAPSULE 200 MG PO ×2 (09:32→13:40)
[2025-03-05] MEDS: allopurinoL 300 MG TABLET PO (09:33)
[2025-03-05] MEDS: EMPAGLIFLOZIN 25 MG TABLET PO (09:33)
[2025-03-05] MEDS: SODIUM CHLORIDE 0.9 % (FLUSH) 10 ML SYRINGE 5 ML IVF (09:35)
[2025-03-05] MEDS: NYSTATIN POWDER 1 APPLIC TOPICAL (09:35)
[2025-03-05] MEDS: PIOGLITAZONE HCL 15 MG TABLET PO (09:36)
[2025-03-05] MEDS: INSULIN GLARGINE,HUM.REC.ANLOG 100 UNIT/ML INSULN.PEN 15 UNIT SUBCUT (09:50)
[2025-03-05 11:00] VITALS: BP 125/75; PULSE 84; RESP 16; TEMP 36.5; O2SAT 96
[2025-03-05 11:14] VITALS: PULSE 78
--- NOTE | 2025-03-05 12:06 | PC.SOCIAL ---
Discharge planning: Pt is on bed hold from [facility]. Met with pt who has trouble speaking but appeared to agree with plan to discharge back to [facility] when ready. PT gave permission for social work administrator to contact his daughter regarding d/c plans. Called dtr Shayna [phone] who is aware and agrees with plan to discharge back to [facility] when able. Dtr states family is no longer able to get pt in and out of a car because of his amputation and are requesting non emergency EMS for transport. Dtr is aware and agrees to private pay estimate of $100 for EMS if not covered by insurance. home support worker to follow up as needed.
--- NOTE | 2025-03-05 12:49 | NUTR.NU ---
RDN with nutrition screen related to positive skin risk and diet education. Patient admitted for possible stroke. Currently resides at [facility]. Current weight 160lb 1oz; height 5ft 5in; BMI 26.6 kg/m2. No weight history to assess. MST score 0. Current diet is Heart Healthy. Meal intakes since admit adequate at 100% x2. Patient is [facility] resident, not appropriate for diet education as he receives all meals at [facility]. No nutrition interventions at this time with stable weight and adequate intakes.. RDN will continue to monitor and follow-up prn.
--- NOTE | 2025-03-05 14:17 | REH.PT ---
Pt eval & treat orders received and chart reviewed. At baseline lives at [facility] living level care. Staff use a stewart lift for transfers between surfaces bed<>w/c at [facility] and pt reports he is able to self propel w/c short distances. Pt non-ambulatory secondary to wounds on residual limb. Hospitalized secondary to CVA with speech impairments. No apparent unilateral LE weakness secondary to CVA. Skilled PT not warranted at this time. Expect pt to return to [facility] with continued assistance with all transfers. D/C PT.
--- NOTE | 2025-03-05 14:55 | PM.DS1 ---
DS: Providers Provider Date Seen: 03/05/25 Date of admission: 03/04/25 16:00 Primary care physician: Irwin Mckinney MD Admitting Clinician: Jaxson Haddad MD Consults: 03/04/25 16:00 Consult to Occupational Therapy [CONS] Routine Comment: Reason(s) for OT Consult:: Evaluate and Treat Any Restrictions?:: No Restrictions Consult to Physical Therapy [CONS] Routine Comment: Reason(s) for PT Consult:: Evaluate and Treat Any Restrictions?:: No Restrictions Consult to Environmental Property Assessor [CONS] Routine Comment: Reason for Consult:: Discharge Planning Needs Consult to Speech Therapy [CONS] Routine Comment: Reason(s) for Speech Consult:: Speech/Swallowing Eval Attending Physician on discharge: LIZ Nazario, [facility] Date of Discharge: 03/05/25 DS: Diagnosis Discharge Diagnosis (1) Cerebrovascular accident: Status: Acute Problem details: Acute stroke involving ischemia in the internal capsule. Clinical syndrome of expressive dysphagia, articulation and word-finding. PT OT speech therapy to evaluate and treat. Aspirin and Plavix, permission of hypertension, echocardiogram, cardiac monitoring. Echocardiogram 03/05: Final Impressions: 1. Normal LV size, mildly increased wall thickness, normal global systolic function with an estimated EF of 65 - 70%. 2. The aortic valve is calcified and sclerotic, mild stenosis and no regurgitation. Tele neurology re-evaluated, recommendations as follows Recommendations at discharge: Antithrombotic plan: - Increase home ASA 81 to 325mg daily x 3 weeks and then stop - s/p Plavix 300mg in ED, continue Plavix 75mg daily indefinitely Blood pressure: no permissive HTN, BP goal normotension Extended outpatient cardiac monitoring: N/A Additional workup or follow up: none Intensive statin therapy recommendations: Intensive statin therapy recommendations LIST: Yes, Increase home lipitor 20 to 40mg daily Rehabilitation interventions as indicated. Sleep Apnea: Exercise: Daily aerobic > 30 minutes as tolerated. Prevention strategies as above. Outpatient clinic follow up: Local neurologist Continue outpatient speech therapy (2) Hypertension: Status: Acute Problem details: Allow for permissive hypertension initially after stroke. Resume home medications on discharge (3) Diabetes mellitus type 2 with atherosclerosis of arteries of extremities: Status: Acute Problem details: Monitor and manage blood sugars. Optimize diabetes care. (4) Peripheral sensory neuropathy due to type 2 diabetes mellitus: Status: Acute Problem details: Chronic (5) Discharge planning issues: Status: Acute Problem details: Patient is resident of [facility]. I think he can return there when inpatient stroke evaluation treatment are complete. He is scheduled to moved to the [place] home next Saturday DS: Summary Hospital Course Hospital Course: Course of care and details as noted above. Remainder of chronic medical comorbidities were monitored and managed with home medications. Status at Discharge Overall status at discharge: patient is back to baseline Time Spent with Patient Time attestation: Total time spent providing and/or coordinating discharge services: Time spent: Greater than 30 minutes Exam Narrative: Exam Narrative: PHYSICAL EXAM General: Pleasant, conversant, NAD Cardiovascular: RRR Pulmonary: No dyspnea Neurological: Alert, answering questions appropriately. Facial droop, slurring of speech noted. No significant RUE/RLE deficits Skin: Warm, dry. Const: Vital Signs, click to edit/add: Vital Signs - 24 hr 03/04/25 15:00 03/04/25 15:01 03/04/25 15:15 Temperature Pulse Rate 69 Pulse Rate [Left P ulse Oximeter] Respiratory Rate 17 27 H Blood Pressure 130/68 Blood Pressure [Ri ght Arm] Pulse Oximetry 98 Oxygen Delivery Me thod 03/04/25 16:14 03/04/25 16:14 03/04/25 18:00 Temperature 97.1 F L Pulse Rate 72 Pulse Rate [Left P ulse Oximeter] 77 Respiratory Rate 14 14 Blood Pressure Blood Pressure [Ri ght Arm] 139/80 Pulse Oximetry 94 94 Oxygen Delivery Me thod Room Air Room Air 03/04/25 19:00 03/04/25 23:30 03/04/25 23:30 Temperature 97.5 F L 98.2 F Pulse Rate Pulse Rate [Left P ulse Oximeter] 73 85 85 Respiratory Rate 16 16 16 Blood Pressure Blood Pressure [Ri ght Arm] 130/74 129/83 Pulse Oximetry 94 95 Oxygen Delivery Me thod Room Air Room Air 03/05/25 00:39 03/05/25 03:00 03/05/25 07:00 Temperature 98.4 F 98.2 F Pulse Rate 84 Pulse Rate [Left P ulse Oximeter] 81 80 Respiratory Rate 16 16 Blood Pressure Blood Pressure [Ri ght Arm] 126/97 H 140/83 H Pulse Oximetry 94 98 Oxygen Delivery Me thod Room Air Room Air 03/05/25 07:00 03/05/25 11:00 03/05/25 11:14 Temperature 97.7 F Pulse Rate 78 Pulse Rate [Left P ulse Oximeter] 80 84 Respiratory Rate 16 16 Blood Pressure Blood Pressure [Ri ght Arm] 125/75 Pulse Oximetry 96 Oxygen Delivery Wa thod Room Air DS: Data Data Completed and Pending Labs on day of discharge: Labs from last 24 hours 03/05/25 06:13 WBC 6.17 RBC 4.66 Hgb 13.4 L Hct 41.3 MCV 89 MCH 29 MCHC 32 RDW Coeff of Kiana 15.8 H Plt Count 144 Neut % (Auto) 69.1 Lymph % (Auto) 14.7 L Elk % (Auto) 13.1 H Eos % (Auto) 2.3 Baso % (Auto) 0.5 Neut # (Auto) 4.26 Lymph # (Auto) 0.90 Elk # (Auto) 0.80 Eos # (Auto) 0.14 Baso # (Auto) 0.03 Abs Immat Gran (auto) 0.02 Imm/Tot Granulo (auto) 0.3 Sodium 137 Potassium 5.3 H Chloride 107 Carbon Dioxide 19 L Anion Gap 11 BUN 48 H Creatinine 1.7 H Estimated Creat Clear 30.65 Estimated GFR 41 Glucose 91 Hemoglobin A1c 8.2 H Calcium 9.3 Triglycerides 218 H Cholesterol 160 LDL Cholesterol, Calc 78 HDL Cholesterol 38 L Imaging MRI - head: Attestation: I have reviewed the pertinent imaging results. Radiologist's impression: Motion artifact significantly degrades multiple sequences. Small focus of diffusion restriction and faint FLAIR hyperintensity within the left internal capsule posterior limb, compatible with acute infarction. [id number] diffuse cerebral volume loss. No mass effect or midline shift. Patchy FLAIR hyperintensities in the supratentorial white matter, typical for moderate chronic microvascular ischemic changes. No recent intracranial hemorrhage or pathologic extra-axial fluid collection. The major arterial flow voids of the skull base are preserved. Thinning of the ocular lenses. Mild left maxillary sinus mucosal thickening. Trace right mastoid fluid Impression: 1. Motion artifact significantly degrades multiple sequences. 2. Small acute infarction within the left internal capsule posterior limb. 3. Moderate chronic microvascular ischemic changes and [id number] diffuse cerebral volume loss. CT scan - head: Attestation: I have reviewed the pertinent imaging results. Radiologist's impression: MASS EFFECT AND VENTRICLES: No significant midline shift. The lateral ventricles are symmetric. Basal cisterns patent. No sulcal effacement. The ventricles, cisterns, and other CSF containing spaces are symmetrically prominent secondary to diffuse parenchymal volume loss but are otherwise normal as to shape and position. BRAIN: Diffuse cerebral volume loss. Periventricular and subcortical hypodensities likely secondary to age-related microvascular ischemic changes. No acute infarct or hemorrhage. VASCULAR: No acute abnormalities of the cavernous carotids and vertebral vessels on noncontrast exam. Calcification of the cavernous carotids. EXTRA-AXIAL: Extra-axial spaces are normal. EXTRA-CRANIAL: Minimal soft tissue stranding along the left forehead. No acute calvarial or facial fractures. Moderate left maxillary sinus mucosal thickening. Mastoids are clear. Bilateral lens replacements. IMPRESSION: No acute intracranial abnormality. Neck CTA: Attestation: I have reviewed the pertinent imaging results. Radiologist's impression: The origins of the great vessels from the aortic arch are patent. The origin of the right vertebral artery is patent. The origin of the left vertebral artery is patent. The common carotid arteries are patent. There is no stenosis at the origin of the right internal carotid artery. There is no stenosis at the origin of the left internal carotid artery. The rest of the cervical segments of the internal carotid arteries are patent up to the skull base. The left vertebral artery is dominant. The cervical segments of the vertebral arteries are patent up to the skull base. The visualized lung apices are unremarkable. The thyroid gland is unremarkable. The soft tissues of the neck are unremarkable. There are degenerative changes in the cervical spine. IMPRESSION: Patent cervical vasculature. Head CTA: Attestation: I have reviewed the pertinent imaging results. Radiologist's impression: CTA head: No large vessel occlusion or significant aneurysm. Mild focal stenosis of the left P2 segment. Calcification of the cavernous carotids. CTA neck: No sign of dissection or critical stenosis. Calcification of the carotid bulbs. Other: Paraseptal emphysema. There is a 3 millimeter nodule in the right upper lobe. In a low risk patient, no further follow-up is indicated. In a high-risk patient, nonemergent CT chest can be considered to evaluate for other nodules. Discharge Plan Discharge Disposition: [facility] Discharge Location: [facility] Date of Admission: 03/04/25 16:00 Attending Provider on Discharge: Angelica Barrow Primary Care Provider: Irwin Mckinney Condition: Improved Anticipated Discharge Date/Time: 03/05/25 14:48 Discharge Medications: New clopidogrel 75 mg Tablet 75 mg PO DAILY Qty: 30 0RF aspirin 325 mg Tablet,Delayed Release (Dr/Ec) 325 mg PO DAILY Qty: 21 0RF Rx Instructions: Take this for 21 days, then stop Continued amlodipine 10 mg tablet 10 mg PO DAILY acetaminophen 500 mg capsule 1,000 mg PO TID PRN allopurinol 300 mg tablet 300 mg PO DAILY carvedilol 6.25 mg tablet 6.25 mg PO BID Rx Instructions: must administer with a meal/food duloxetine [Cymbalta] 30 mg capsule,delayed release(DR/EC) 30 mg PO BID empagliflozin 25 mg tablet 25 mg PO DAILY gabapentin [Neurontin] 100 mg capsule 200 mg PO TID gabapentin 100 mg capsule 200 mg PO Q8H PRN lisinopril 40 mg tablet 40 mg PO DAILY pioglitazone [Actos] 15 mg tablet 15 mg PO DAILY omeprazole 20 mg capsule,delayed release(DR/EC) 20 mg PO DAILY atorvastatin 40 mg tablet 40 mg PO QHS diclofenac sodium 1 % gel 2 g topical QID Rx Instructions: apply to single elbow, wrist or hand; for hand includes palm/fingers/back of hand insulin aspart U-100 100 unit/mL (3 mL) insulin pen 15 unit subcut TID insulin glargine 100 unit/mL (3 mL) insulin pen 40 unit subcut DAILY nitroglycerin 0.4 mg tablet, sublingual 0.4 mg sublingual Q5M Rx Instructions: do not exceed 3 doses per episode melatonin 3 mg capsule 3 mg PO HS PRN lidocaine [Aspercreme (lidocaine)] 4 % adhesive patch,medicated 1 patch topical DAILY PRN Discontinued aspirin 81 mg capsule 81 mg PO DAILY Discharge Orders: Discharge Order (Routine); Ordered 03/05/25 Ordered By: Angelica Barrow Additional Instructions: Per Neurology, recommend outpatient Neurology follow up appointment Per Speech Therapy, recommend ongoing speech therapy - evaluate and treat Activity Level: No Restrictions Activity Detail: Recommend Daily aerobic > 30 minutes as tolerated Discharge Diet: Heart Healthy (2 gm sodium, low fat) Follow Up Appointments: Irwin Mckinney MD [Primary Care Provider] - Forms: [facility] Info Instructions Admit to: SNF Length of Stay: <30 days Can use facility standing orders?: Yes Code Status: DNR/DNI Rehab Potential: Good Therapy: Speech Therapy Therapy Orders: Evaluate and Treat Oxygen: No Urinary Catheter: No Glucose Checks: resume previous schedule Orders are good >30 days: No Signature: LIZ Nazario, [facility]
[2025-03-05 15:00] VITALS: BP 147/91; PULSE 85; RESP 18; TEMP 36.6; O2SAT 97
--- NOTE | 2025-03-05 15:53 | PC.NURSE ---
Discharge note: VSS. Afebrile. Pt denies pain. Pt has intermittent confusion, pt is redirectable. Pt has expressive aphasia andright sided weakness. Pt tolerated regular diet well. Neuros are intact. Ambulates via ceiling lift. EMS transported the patient back to [address] [place] [address] at 1538 via stretcher. Nurse to nurse given to Jaelyn. IV removed and tip intact.
== END 2025-03-05 15:38 | DRG 65 ==
LOC: ED 15:10 → MEDSURG 15:33
PROVIDERS: Admitting Provider Family Medicine; Emergency Provider Student in an Organized Health Care Education/Training Program; PCP Family Medicine; Visit Provider Family Medicine
DX: I63.9 Cerebral infarction, unspecified (principal); G81.94 Hemiplegia, unspecified affecting left nondominant side; R29.810 Facial weakness; R13.10 Dysphagia, unspecified; I10 Essential (primary) hypertension; R29.704 NIHSS score 4; E11.42 Type 2 diabetes mellitus with diabetic polyneuropathy; E11.51 Type 2 diabetes mellitus with diabetic peripheral angiopathy without gangrene; I70.209 Unspecified atherosclerosis of native arteries of extremities, unspecified extremity; Z89.511 Acquired absence of right leg below knee; Z95.5 Presence of coronary angioplasty implant and graft; E78.5 Hyperlipidemia, unspecified; K21.9 Gastro-esophageal reflux disease without esophagitis; Z79.82 Long term (current) use of aspirin; Z79.4 Long term (current) use of insulin; Z79.84 Long term (current) use of oral hypoglycemic drugs
CPT/HCPCS: 36415; 51798; 70450; 70496; 70498; 70551; 80048; 80053; 80061; 82962; 83036; 85025; 85610; 92523; 93005; 93306; 94761; 97166; 99285; 99291; A9270; J1650; J7030; Q9967

== ENCOUNTER 2025-03-05 15:28 | Outpatient (CLI) | payer OTHER, MEDICARE, SELFPAY | END 2025-03-05 15:29 | disposition home or self-care (01) | LOC: AMB 03-08 10:10 | PROVIDERS: PCP Family Medicine; Visit Provider Family Medicine | DX: I63.9 Cerebral infarction, unspecified (principal) | CPT/HCPCS: A0425; A0428 ==